=== PATIENT | female | born 1935 | race Caucasian/White ===

== ENCOUNTER 2016-08-01 11:03 | Observation (INO) | payer OTHER ==
[~2016-08-01] VITALS: Ht 167.6 cm; Wt 79.3 kg
[~2016-08-01 11:03] MED LIST: AMLODIPINE BESY10 MG PO; ASPIR-LOW81 MG PO; AVAPRO300 MG PO; GLUCOPHAGE1000 MG PO; KEFLEX500 MG PO; LEXAPRO20 MG PO; LOPRESSOR50 MG PO; MECLIZINE HCL25 MG PO; METOPROLOL SUCC25 MG PO; NORVASC5 MG PO; PANTOPRAZOLE SO40 MG PO; PERCOCET 5/31 TABLET PO; PRAVASTATIN SOD40 MG PO; PRILOSEC20 MG PO; ZANTAC300 MG PO; ZOCOR20 MG PO
[2016-08-01 11:36] LABS: EOSINOPHIL (%) 1.3 % (0-5); EOSINOPHIL COUNT 0.2 K/uL (0-0.3); HEMATOCRIT 35.2 % (36.0-46.0); IMMATURE GRANULOCYTE (%) 0.5 % (0.0-0.7); IMMATURE GRANULOCYTE COUNT 0.1 K/uL; INSTRUMENT ABS NEUTROPHIL CT 10.6 K/uL; LYMPHOCYTE COUNT 1.3 K/uL (1.0-2.8); MCH 30.6 PG (29.0-34.0); MCHC 32.4 G/DL (30.0-36.0); MCV 94.4 FL (83-99); MEAN PLAT.VOLUME 10.1 uM^3 (9.5-12.4); MONOCYTE (%) 6.2 % (3-12); MONOCYTE COUNT 0.8 K/uL (0-0.8); NEUTROPHIL (%) 81.9 % (45-76); NEUTROPHIL COUNT 10.6 K/uL (1.8-6.4); PLATELET COUNT 330 K/uL (156-360); RBC DIS.WIDTH-CV 13.2 % (11.8-14.6); RBC DIS.WIDTH-SD 45.5 % (39-53); RED BLOOD COUNT 3.73 M/uL (3.80-5.20)
[2016-08-01 11:47] LABS: POINT-OF-CARE METER ID UU14100415
[2016-08-01 11:47] LABS: CHLORIDE 100 mEq/L (99-109); POTASSIUM 4.8 mEq/L (3.7-5.4); SODIUM 141 mEq/L (136-147)
[2016-08-01 11:49] LABS: GLUCOSE 57 mg/dL (70-99)
[2016-08-01 11:51] LABS: ANION GAP 13 MEQ/L (2-14)
[2016-08-01 11:53] LABS: GFR ESTIMATE (CALCULATED) 31 mL/min/
[2016-08-01 11:54] LABS: UREA NITROGEN (BUN) 41 mg/dL (9-23)
[2016-08-01 12:48] LABS: ADD MIUA? YES; BILIRUBIN NEGATIVE; BLOOD NEGATIVE; COLOR YELLOW ((YELLOW)); GLUCOSE (STRIP) NEGATIVE; KETONES NEGATIVE; LEUKOCYTES TRACE; NITRITE NEGATIVE; PROTEIN (STRIP) 100; SPECIFIC GRAVITY 1.009 (1.000-1.030); UROBILINOGEN 0.2 MG/DL (0.2-1.0)
[2016-08-01 12:51] LABS: BACTERIA NONE SEEN /HPF; EPITHELIAL CELLS RARE /HPF; MUCUS NONE SEEN /LPF; RED BLOOD CELLS 0-5 /HPF (0-5); WHITE BLOOD CELLS 0-5 /HPF (0-5)
[2016-08-01 13:08] LABS: POINT-OF-CARE METER ID UU14100415
[2016-08-01] MEDS ORDERED: PROTONIX40 MG PO (13:38)
[2016-08-01] MEDS ORDERED: ALLEGRA-D 241 TABLET PO (13:38)
[2016-08-01] MEDS ORDERED: FLONASE16 G1 BOTH NARES (13:39)
[2016-08-01] MEDS ORDERED: LANTUS 3 M100 UNITS1 SC (13:40)
[2016-08-01] MEDS ORDERED: FUROSEMIDE40 MG PO (14:10)
[2016-08-01 15:42] VITALS: BP 141/67
[2016-08-01 17:05] LABS: POINT-OF-CARE METER ID UU13113700
[2016-08-01 19:30] VITALS: BP 181/79
[2016-08-01 20:40] LABS: POINT-OF-CARE METER ID UU13113700
[2016-08-01 23:48] VITALS: BP 165/59
[2016-08-02 04:11] VITALS: BP 138/62
[2016-08-02 05:19] LABS: POINT-OF-CARE METER ID UU13113700
[2016-08-02 07:22] VITALS: BP 134/64
[2016-08-02 10:03] LABS: HEMATOCRIT 32.8 % (36.0-46.0); MCH 30.5 PG (29.0-34.0); MCHC 32.3 G/DL (30.0-36.0); MCV 94.5 FL (83-99); MEAN PLAT.VOLUME 10.2 uM^3 (9.5-12.4); PLATELET COUNT 296 K/uL (156-360); RBC DIS.WIDTH-CV 13.3 % (11.8-14.6); RBC DIS.WIDTH-SD 46.5 % (39-53); RED BLOOD COUNT 3.47 M/uL (3.80-5.20); WHITE BLOOD COUNT 9.4 K/uL (4.1-10.2)
[2016-08-02 10:04] LABS: ANION GAP 10 MEQ/L (2-14); CHLORIDE 101 MEQ/L (99-109); SAMPLE HEMOLYSIS CHECK 0; SAMPLE ICTERIC CHECK 0; SAMPLE LIPEMIA CHECK 0; SODIUM 139 MEQ/L (136-147)
[2016-08-02 10:10] LABS: GFR ESTIMATE (CALCULATED) 39 mL/min/; UREA NITROGEN (BUN) 23 mg/dL (9-23)
[2016-08-02 10:14] LABS: GLUCOSE 169 mg/dL (70-99); POTASSIUM 3.8 MEQ/L (3.7-5.4)
[2016-08-02 10:46] VITALS: BP 133/63
[2016-08-02 12:17] LABS: POINT-OF-CARE METER ID UU13113700
[2016-08-02 15:54] VITALS: BP 147/65
== END 2016-08-02 18:18 | disposition home or self-care (01) ==
LOC: EME 11:03 → EDOF 13:09 → 5WEST 13:09 → EDOF 13:09 → 5WEST 15:28
PROVIDERS: Emergency Medicine; Family Medicine Sports Medicine
DX: E11.649 Type 2 diabetes mellitus with hypoglycemia without coma (principal); N17.9 Acute kidney failure, unspecified; E86.0 Dehydration; Z91.19 Patient's noncompliance with other medical treatment and regimen; I10 Essential (primary) hypertension; G89.29 Other chronic pain; Z79.4 Long term (current) use of insulin; E78.5 Hyperlipidemia, unspecified; K21.9 Gastro-esophageal reflux disease without esophagitis; F32.9 Major depressive disorder, single episode, unspecified; F41.9 Anxiety disorder, unspecified; F17.200 Nicotine dependence, unspecified, uncomplicated
CPT/HCPCS: 80048; 81003; 82948; 85025; 85027; 93005; 99281; 99285; G0378

== ENCOUNTER 2016-08-08 15:09 | Emergency (ER) | payer OTHER ==
[~2016-08-08] VITALS: Ht 172.7 cm; Wt 78.9 kg
[~2016-08-08 15:09] MED LIST changes: +ALLEGRA-D 241 TABLET PO; +FLONASE16 G1 BOTH NARES; +FUROSEMIDE40 MG PO; +LANTUS 3 M100 UNITS1 SC; +PROTONIX40 MG PO
[2016-08-08 20:06] VITALS: BP 1443/66
== END 2016-08-08 20:07 | disposition home or self-care (01) ==
LOC: EME 15:09
PROC: 2W3JX1Z Immobilization of Right Finger using Splint (ICD-10-PCS; principal; 2016-08-08)
DX: M54.9 Dorsalgia, unspecified (principal); S62.654A Nondisplaced fracture of middle phalanx of right ring finger, initial encounter for closed fracture; S06.0X9A Concussion with loss of consciousness of unspecified duration, initial encounter; S00.01XA Abrasion of scalp, initial encounter; W10.9XXA Fall (on) (from) unspecified stairs and steps, initial encounter; Y92.008 Other place in unspecified non-institutional (private) residence as the place of occurrence of the external cause; F32.9 Major depressive disorder, single episode, unspecified; E11.9 Type 2 diabetes mellitus without complications; I10 Essential (primary) hypertension; G43.909 Migraine, unspecified, not intractable, without status migrainosus; K21.9 Gastro-esophageal reflux disease without esophagitis; Z87.891 Personal history of nicotine dependence; M85.88 Other specified disorders of bone density and structure, other site
CPT/HCPCS: 70450; 72040; 72070; 72100; 73140; 99281; 99284

== ENCOUNTER 2017-03-01 15:01 | Inpatient (IN) | payer OTHER ==
[~2017-03-01] VITALS: Ht 170.2 cm; Wt 67.6 kg
[2017-03-01 16:34] LABS: EOSINOPHIL (%) 0.2 % (0-5); HEMATOCRIT 30.6 % (36.0-46.0); IMMATURE GRANULOCYTE (%) 0.6 % (0.0-0.7); IMMATURE GRANULOCYTE COUNT 0.1 K/uL; LYMPHOCYTE COUNT 1.4 K/uL (1.0-2.8); MCH 30.1 PG (29.0-34.0); MCHC 35.6 G/DL (30.0-36.0); MONOCYTE (%) 4.6 % (3-12); MONOCYTE COUNT 0.9 K/uL (0-0.8); PLATELET COUNT 320 K/uL (156-360); RBC DIS.WIDTH-CV 11.9 % (11.8-14.6); RBC DIS.WIDTH-SD 36.7 % (39-53); RED BLOOD COUNT 3.62 M/uL (3.80-5.20); WHITE BLOOD COUNT 18.4 K/uL (4.1-10.2)
[2017-03-01 16:36] LABS: MCV 84.5 FL (83-99)
[2017-03-01 16:43] LABS: CHLORIDE 80 mEq/L (99-109); POTASSIUM 3.4 mEq/L (3.7-5.4)
[2017-03-01 16:45] LABS: GLUCOSE 226 mg/dL (70-99)
[2017-03-01 16:47] LABS: TOTAL BILIRUBIN 0.6 mg/dL (0.0-1.0)
[2017-03-01 16:49] LABS: ALKALINE PHOSPHATASE 68 IU/L (3-129); ANION GAP 12 MEQ/L (2-14); GFR ESTIMATE (CALCULATED) 57 mL/min/
[2017-03-01 16:50] LABS: UREA NITROGEN (BUN) 21 mg/dL (9-23)
[2017-03-01 16:53] LABS: LIPASE 77 U/L (1.0-51.0); SODIUM 118 mEq/L (136-147)
[2017-03-01 16:55] LABS: TROP-I INTERPRETATION NEGATIVE; TROPONIN-I 0.01 ng/mL (0.0-0.30)
[2017-03-01 17:12] LABS: ADD MIUA? YES; BILIRUBIN NEGATIVE; BLOOD NEGATIVE; COLOR YELLOW ((YELLOW)); GLUCOSE (STRIP) >=500; KETONES NEGATIVE; LEUKOCYTES NEGATIVE; NITRITE NEGATIVE; PROTEIN (STRIP) >=500; UROBILINOGEN 0.2 MG/DL (0.2-1.0)
[2017-03-01 17:15] LABS: BACTERIA RARE /HPF; EPITHELIAL CELLS RARE /HPF; MUCUS NONE SEEN /LPF; RED BLOOD CELLS 0-5 /HPF (0-5); WHITE BLOOD CELLS 0-5 /HPF (0-5)
[2017-03-01] MEDS ORDERED: GLIMEPIRIDE2 MG PO (17:44)
[2017-03-01] MEDS ORDERED: CARAFATE1 GM PO (17:51)
[2017-03-01 21:00] VITALS: BP 178/74
[2017-03-01 22:30] VITALS: BP 207/87
[2017-03-02 00:16] VITALS: BP 168/75
[2017-03-02 03:21] VITALS: BP 165/79
[2017-03-02 05:43] LABS: HEMATOCRIT 28.6 % (36.0-46.0); MCH 30.1 PG (29.0-34.0); MCHC 34.6 G/DL (30.0-36.0); MCV 86.9 FL (83-99); MEAN PLAT.VOLUME 10.1 uM^3 (9.5-12.4); PLATELET COUNT 294 K/uL (156-360); RBC DIS.WIDTH-CV 12.5 % (11.8-14.6); RED BLOOD COUNT 3.29 M/uL (3.80-5.20); WHITE BLOOD COUNT 13.7 K/uL (4.1-10.2)
[2017-03-02 06:02] LABS: ANION GAP 6 MEQ/L (2-14); CHLORIDE 91 MEQ/L (99-109); GFR ESTIMATE (CALCULATED) > 59 mL/min/; GLUCOSE 113 mg/dL (70-99); POTASSIUM 3.1 MEQ/L (3.7-5.4); SAMPLE HEMOLYSIS CHECK 0; SAMPLE ICTERIC CHECK 0; SAMPLE LIPEMIA CHECK 0; SODIUM 126 MEQ/L (136-147); UREA NITROGEN (BUN) 14 mg/dL (9-23)
[2017-03-02 07:44] VITALS: BP 171/72
[2017-03-02 11:42] VITALS: BP 140/62
[2017-03-02 12:02] LABS: METH RESISTANT S AUREUS PCR NEGATIVE (NEGATIVE); PROBE CHECK PASS; SPECIMEN PROCESSING CONTROL PASS
[2017-03-02 17:03] VITALS: BP 147/70
[2017-03-02 19:36] VITALS: BP 113/55
[2017-03-03] VITALS (7 sets, daily range): BP systolic 121–168; BP diastolic 58–88
[2017-03-03 05:59] LABS: EOSINOPHIL (%) 1.5 % (0-5); EOSINOPHIL COUNT 0.2 K/uL (0-0.3); IMMATURE GRANULOCYTE (%) 0.2 % (0.0-0.7); INSTRUMENT ABS NEUTROPHIL CT 7.2 K/uL; LYMPHOCYTE COUNT 1.9 K/uL (1.0-2.8); MCH 29.9 PG (29.0-34.0); MCHC 33.6 G/DL (30.0-36.0); MEAN PLAT.VOLUME 10.6 uM^3 (9.5-12.4); MONOCYTE (%) 7.7 % (3-12); MONOCYTE COUNT 0.8 K/uL (0-0.8); NEUTROPHIL (%) 71.5 % (45-76); NEUTROPHIL COUNT 7.2 K/uL (1.8-6.4); PLATELET COUNT 268 K/uL (156-360); RBC DIS.WIDTH-CV 13.2 % (11.8-14.6); RBC DIS.WIDTH-SD 43.4 % (39-53); RED BLOOD COUNT 2.81 M/uL (3.80-5.20); WHITE BLOOD COUNT 10.1 K/uL (4.1-10.2)
[2017-03-03 06:47] LABS: ANION GAP 7 MEQ/L (2-14); GFR ESTIMATE (CALCULATED) 57 mL/min/; SAMPLE HEMOLYSIS CHECK 0; SAMPLE ICTERIC CHECK 0; SAMPLE LIPEMIA CHECK 0
[2017-03-03 06:48] LABS: CHLORIDE 102 MEQ/L (99-109); GLUCOSE 234 mg/dL (70-99); POTASSIUM 3.8 MEQ/L (3.7-5.4); SODIUM 135 MEQ/L (136-147); UREA NITROGEN (BUN) 22 mg/dL (9-23)
[2017-03-03 22:04] LABS: POINT-OF-CARE METER ID UU14117124
[2017-03-04 02:00] LABS: ADD MIUA? YES; BILIRUBIN NEGATIVE; BLOOD NEGATIVE; COLOR YELLOW ((YELLOW)); GLUCOSE (STRIP) >=500; KETONES NEGATIVE; LEUKOCYTES LARGE; NITRITE NEGATIVE; PROTEIN (STRIP) >=500; SPECIFIC GRAVITY 1.009 (1.000-1.030); UROBILINOGEN 0.2 MG/DL (0.2-1.0)
[2017-03-04 02:18] LABS: BACTERIA 3+ /HPF; CASTS NONE SEEN /LPF; CRYSTALS NONE SEEN; EPITHELIAL CELLS NONE SEEN /HPF; MUCUS NONE SEEN /LPF; RED BLOOD CELLS NONE SEEN /HPF (0-5); UCUL ADDED? YES; WHITE BLOOD CELLS TNTC /HPF (0-5)
[2017-03-04 05:29] VITALS: BP 185/88
[2017-03-04 06:46] LABS: POINT-OF-CARE METER ID UU14208753
[2017-03-04 06:50] LABS: EOSINOPHIL (%) 1.7 % (0-5); EOSINOPHIL COUNT 0.2 K/uL (0-0.3); HEMATOCRIT 29.1 % (36.0-46.0); IMMATURE GRANULOCYTE (%) 0.4 % (0.0-0.7); IMMATURE GRANULOCYTE COUNT 0.1 K/uL; LYMPHOCYTE COUNT 1.7 K/uL (1.0-2.8); MCH 29.6 PG (29.0-34.0); MCV 89.8 FL (83-99); MEAN PLAT.VOLUME 10.3 uM^3 (9.5-12.4); MONOCYTE (%) 5.7 % (3-12); MONOCYTE COUNT 0.8 K/uL (0-0.8); NEUTROPHIL (%) 79.8 % (45-76); PLATELET COUNT 299 K/uL (156-360); RBC DIS.WIDTH-CV 13.5 % (11.8-14.6); RBC DIS.WIDTH-SD 44.6 % (39-53); RED BLOOD COUNT 3.24 M/uL (3.80-5.20); WHITE BLOOD COUNT 13.8 K/uL (4.1-10.2)
[2017-03-04 07:12] LABS: ANION GAP 7 MEQ/L (2-14); CHLORIDE 103 MEQ/L (99-109); GFR ESTIMATE (CALCULATED) 57 mL/min/; GLUCOSE 225 mg/dL (70-99); IRON 20 MCG/DL (35-150); POTASSIUM 3.9 MEQ/L (3.7-5.4); SAMPLE HEMOLYSIS CHECK 0; SAMPLE ICTERIC CHECK 0; SAMPLE LIPEMIA CHECK 0; SODIUM 139 MEQ/L (136-147); UREA NITROGEN (BUN) 15 mg/dL (9-23)
[2017-03-04 08:11] VITALS: BP 160/70
[2017-03-04 12:06] VITALS: BP 140/50
[2017-03-04 12:07] LABS: POINT-OF-CARE METER ID UU14188577
[2017-03-04 16:03] LABS: POINT-OF-CARE METER ID UU14188577
[2017-03-04 16:04] VITALS: BP 150/60
[2017-03-04 22:51] LABS: POINT-OF-CARE METER ID UU13113675
[2017-03-05] VITALS (7 sets, daily range): BP systolic 110–138; BP diastolic 52–68
[2017-03-05 06:31] LABS: POINT-OF-CARE METER ID UU14188577
[2017-03-05 12:09] LABS: POINT-OF-CARE METER ID UU14117124
[2017-03-05 17:06] LABS: POINT-OF-CARE METER ID UU14117124
[2017-03-05] MEDS ORDERED: APRESOLINE50 MG PO (23:22)
[2017-03-05] MEDS ORDERED: LOVENOX40 MG/0.4 SC (23:22)
[2017-03-05] MEDS ORDERED: GLIMEPIRIDE2 MG PO (23:25)
[2017-03-05] MEDS ORDERED: METFORMIN HCL500 M4 PO (23:26)
[2017-03-05] MEDS ORDERED: ENDOCET 5-3251 EACH PO (23:27)
[2017-03-05 23:44] LABS: POINT-OF-CARE METER ID UU14117124
[2017-03-06 04:26] VITALS: BP 176/76
[2017-03-06 06:53] LABS: POINT-OF-CARE METER ID UU14208753
[2017-03-06 07:43] VITALS: BP 171/74
[2017-03-06 11:48] VITALS: BP 134/64
[2017-03-06 12:26] LABS: POINT-OF-CARE METER ID UU14117124
[2017-03-06 14:31] LABS: EOSINOPHIL (%) 1.5 % (0-5); EOSINOPHIL COUNT 0.2 K/uL (0-0.3); HEMATOCRIT 25.3 % (36.0-46.0); IMMATURE GRANULOCYTE (%) 0.5 % (0.0-0.7); IMMATURE GRANULOCYTE COUNT 0.1 K/uL; INSTRUMENT ABS NEUTROPHIL CT 9.8 K/uL; LYMPHOCYTE COUNT 2.5 K/uL (1.0-2.8); MCHC 33.2 G/DL (30.0-36.0); MCV 93.4 FL (83-99); MEAN PLAT.VOLUME 9.9 uM^3 (9.5-12.4); MONOCYTE (%) 6.2 % (3-12); MONOCYTE COUNT 0.8 K/uL (0-0.8); NEUTROPHIL (%) 72.8 % (45-76); NEUTROPHIL COUNT 9.8 K/uL (1.8-6.4); PLATELET COUNT 291 K/uL (156-360); RBC DIS.WIDTH-CV 14.1 % (11.8-14.6); RBC DIS.WIDTH-SD 47.7 % (39-53); RED BLOOD COUNT 2.71 M/uL (3.80-5.20); WHITE BLOOD COUNT 13.5 K/uL (4.1-10.2)
[2017-03-06 14:51] LABS: ANION GAP 7 MEQ/L (2-14); CHLORIDE 100 MEQ/L (99-109); POTASSIUM 3.7 MEQ/L (3.7-5.4); SAMPLE HEMOLYSIS CHECK 0; SAMPLE ICTERIC CHECK 0; SAMPLE LIPEMIA CHECK 0; SODIUM 135 MEQ/L (136-147)
[2017-03-06 14:58] LABS: GFR ESTIMATE (CALCULATED) 51 mL/min/; GLUCOSE 174 mg/dL (70-99); UREA NITROGEN (BUN) 24 mg/dL (9-23)
[2017-03-06] MEDS ORDERED: NABI650T PO (15:42)
[2017-03-06] MEDS ORDERED: FERROUS SULFAT324 M1 PO (15:43)
[2017-03-06 16:10] VITALS: BP 130/70
[2017-03-06 16:31] LABS: POINT-OF-CARE METER ID UU14208753
[2017-03-08 08:47] LABS: POINT-OF-CARE METER ID UU14188577
== END 2017-03-06 17:33 | DRG 511 ==
LOC: EME 15:01 → 3EAST 17:50 → EDOF 17:50 → ENRESERV 17:51 → CANRESERV 18:07 → ENRESERV 20:13 → 4EAST 20:14 → ENRESERV 03-03 13:52 → 3EAST 03-03 16:10
PROVIDERS: Family Medicine; Family Medicine Sports Medicine; Physician Assistant
PROC: 0RS Upper Joints, Reposition (ICD-10-PCS; principal; 2017-03-01)
DX: S52.021A Displaced fracture of olecranon process without intraarticular extension of right ulna, initial encounter for closed fracture (principal); E87.1 Hypo-osmolality and hyponatremia; F41.9 Anxiety disorder, unspecified; F32.9 Major depressive disorder, single episode, unspecified; E11.51 Type 2 diabetes mellitus with diabetic peripheral angiopathy without gangrene; I10 Essential (primary) hypertension; E78.5 Hyperlipidemia, unspecified; K21.9 Gastro-esophageal reflux disease without esophagitis; G89.29 Other chronic pain; W18.30XA Fall on same level, unspecified, initial encounter; J44.9 Chronic obstructive pulmonary disease, unspecified; N39.0 Urinary tract infection, site not specified; B96.20 Unspecified Escherichia coli [E. coli] as the cause of diseases classified elsewhere; M54.9 Dorsalgia, unspecified; Z79.899 Other long term (current) drug therapy; Z79.84 Long term (current) use of oral hypoglycemic drugs; Z79.82 Long term (current) use of aspirin; R29.6 Repeated falls; D64.9 Anemia, unspecified; I11.9 Hypertensive heart disease without heart failure; E11.22 Type 2 diabetes mellitus with diabetic chronic kidney disease; I12.9 Hypertensive chronic kidney disease with stage 1 through stage 4 chronic kidney disease, or unspecified chronic kidney disease; N18.9 Chronic kidney disease, unspecified
CPT/HCPCS: 70450; 71020; 72125; 73070; 73080; 76000; 76705; 80048; 80053; 81003; 82272; 82948; 83540; 83605; 83690; 84466; 84484; 85025; 85027; 87040; 87077; 87086; 87186; 87641; 93005; 94799; 99281; 99285; C1713; C1769; J0131; J0330; J0690; J0696; J1100; J1335; J1650; J1815; J2405; J3010; J3480; J7030; J7050; S0020

== ENCOUNTER 2017-03-25 10:07 | Day surgery (SDC) | payer OTHER ==
[~2017-03-25] VITALS: Ht 170.2 cm; Wt 67.6 kg
[~2017-03-25 10:07] MED LIST changes: +ALLEGRA ALLERG180 MG PO; -ALLEGRA-D 241 TABLET PO; +APRESOLINE50 MG PO; +CARAFATE1 GM PO; +COZAAR50 MG PO; +DULCOLAX10 MG PR; +ENDOCET 5-3251 EACH PO; +FERROUS SULFAT324 M1 PO; +FLEET MINERAL133 ML PR; +GLIMEPIRIDE2 MG PO; +GLUCOPHAGE500 MG PO; +IRON325 M1 PO; +LEXAPRO10 MG PO; -LEXAPRO20 MG PO; +LIPITOR10 MG PO; +LOVENOX40 MG/0.4 SC; +METFORMIN HCL500 M4 PO; +MILK OF MAGN PO; +MIRALAX17 GM PO; +NABI650T PO; +NORVASC10 MG PO; +NOVOLOG PE100 UNITS/ SC; +TOPROL XL50 MG PO; +TYLENOL REGULA325 MG PO; +ZOLOFT25 MG PO
[2017-03-25 10:57] VITALS: BP 128/58
[2017-03-25 11:14] LABS: POINT-OF-CARE METER ID UU14174212
[2017-03-25 12:09] LABS: METH RESISTANT S AUREUS PCR NEGATIVE (NEGATIVE)
[2017-03-25 12:14] LABS: PROBE CHECK PASS; SPECIMEN PROCESSING CONTROL PASS
[2017-03-25 15:43] LABS: POINT-OF-CARE METER ID UU13113675
[2017-03-25 16:36] VITALS: BP 121/56
[2017-03-25 17:17] VITALS: BP 123/60
== END 2017-03-25 17:38 | disposition home or self-care (01) ==
LOC: SDC 10:07
PROVIDERS: Orthopaedic Surgery
DX: T84.122A Displacement of internal fixation device of bone of right forearm, initial encounter (principal); W18.30XA Fall on same level, unspecified, initial encounter; F41.1 Generalized anxiety disorder; I12.9 Hypertensive chronic kidney disease with stage 1 through stage 4 chronic kidney disease, or unspecified chronic kidney disease; E11.22 Type 2 diabetes mellitus with diabetic chronic kidney disease; N18.9 Chronic kidney disease, unspecified; K21.9 Gastro-esophageal reflux disease without esophagitis; Z87.891 Personal history of nicotine dependence; Z79.82 Long term (current) use of aspirin; Z79.4 Long term (current) use of insulin; Z88.0 Allergy status to penicillin
CPT/HCPCS: 73080; 76000; 82948; 87641; C1713; J0690; J1100; J1170; J2250; J2405; J2795; J3010

== ENCOUNTER → 2017-04-19 | Outpatient (CLI) | payer OTHER | LOC: MRI 10:43 → RAD 11:00 → MRI 11:00 | DX: M48.061 Spinal stenosis, lumbar region without neurogenic claudication (principal); M47.896 Other spondylosis, lumbar region; R26.2 Difficulty in walking, not elsewhere classified | CPT/HCPCS: 72148 ==